=== PATIENT | female | born 1970 | race Caucasian/White ===

== ENCOUNTER 2024-02-06 09:00 | Inpatient (IN) | payer SELFPAY ==
[2024-02-06 09:09] VITALS: BMI 27.6
[2024-02-06] MEDS ORDERED: ACETAMINOPHEN INJECTION 100 ML IVPB ONE (10:22)
[2024-02-06 10:42] LABS: HEMATOCRIT 42.2 % (32.4-45.2); HEMOGLOBIN 14.3 GM/dL (10.7-15.3); MCH 31.2 pg (25.7-33.7); MEAN CELL VOLUME 91.8 fl (80-96); MEAN PLT VOLUME 9.2 fl (7.5-11.1); PLATELET COUNT 172 10^3/uL (134-434); WHITE BLOOD COUNT 18.6 K/mm3 (4.0-10.0)
[2024-02-06 10:55] LABS: POTASSIUM 4.1 mmol/L (3.5-5.1)
[2024-02-06 10:56] LABS: ALBUMIN 3.2 g/dl (3.4-5.0); CALCIUM 8.6 mg/dL (8.5-10.1)
[2024-02-06 10:59] LABS: CREATININE 0.5 mg/dL (0.55-1.3)
[2024-02-06] MEDS: SODIUM CHLORIDE 0.9% 500 ML INFUS.BAG IV ONE (12:17)
[2024-02-06] MEDS ORDERED: morphine SULFATE 4 MG/ML VIAL ONE (13:14)
[2024-02-06] MEDS ORDERED: CEFAZOLIN SODIUM 2 GM VIAL ONE (13:15)
[2024-02-06] MEDS ORDERED: LORATADINE 10 MG TABLET ONE (13:15)
[2024-02-06] MEDS: LORATADINE 10 MG TABLET PO ONE (13:23)
[2024-02-06] MEDS: morphine CARPU-JECT 4 MG/1 ML DISP.SYRIN IVPUSH ONE (13:23)
[2024-02-06] MEDS: CEFAZOLIN SODIUM 2 GM in DEXTROSE 5%-WATER 100 ML IVPB ONE (13:24)
[2024-02-06 13:43] LABS: ANISOCYTOSIS 0; HELMET CELLS 0; HOWELL-JOLLY BODIES 0; MACROCYTOSIS 0; OVALOCYTE 0; ROULEAU 0; SICKELED CELLS 0; TARGET CELLS 0; TEAR DROP CELLS 0; TOXIC GRANULATION 0
[2024-02-06] MEDS ORDERED: LISINOPRIL 10 MG TABLET ONE (15:40)
[2024-02-06] MEDS: LISINOPRIL 10 MG TABLET PO SCH (15:51)
[2024-02-06] MEDS ORDERED: ACETAMINOPHEN 325 MG TABLET (FP) ONE ×2 (17:06→22:31)
[2024-02-06] MEDS ORDERED: metFORMIN HCL 500 MG TABLET (FP) ONE (17:06)
[2024-02-06] MEDS ORDERED: oxyCODONE HCL 5 MG TABLET ONE (17:07)
[2024-02-06] MEDS: oxyCODONE HCL 5 MG TABLET PO PRN (17:10)
[2024-02-06] MEDS: ACETAMINOPHEN 325 MG TABLET (FP) PO PRN (17:10)
[2024-02-06] MEDS: metFORMIN HCL 500 MG TABLET (FP) PO SCH (17:10)
[2024-02-06] MEDS ORDERED: PIPERACILLIN/TAZOB 3.375 GM 3.375 GM/50 ML BAG IVPB ONE (17:52)
[2024-02-06] MEDS: PIPERACILLIN/TAZOB 3.375 GM 3.375 GM in DEXTROSE 5%-WATER - 50 ML IVPB SCH (17:58)
[2024-02-06] MEDS ORDERED: PIPERACILLIN/TAZOB 3.375 GM 3.375 GM in DEXTROSE 5%-WATER - 50 ML IVPB SCH (18:00)
[2024-02-06] MEDS: INSULIN ASPART SLIDING SCALE (NOVOLOG) 1 VIAL SQ SCH (18:20)
[2024-02-06] MEDS ORDERED: INSULIN (NOVOLOG) ASPART 100 UNITS/ML 10ML VIAL ONE ×2 (18:22→22:32)
[2024-02-06] MEDS ORDERED: VANCOMYCIN 1 GRAM (PRE-DOCKED) 1,000 MG/250 ML BAG IVPB ONE (18:23)
[2024-02-06] MEDS: VANCOMYCIN 1 GRAM (PRE-DOCKED) 1,000 MG/250 ML BAG IVPB ONE (18:30)
[2024-02-06] MEDS: VANCOMYCIN 1 GM PREMIX - 1 GM/200 ML BAG IVPB ONE (19:09)
[2024-02-06] MEDS ORDERED: HEPARIN NA (PORCINE) 5,000 UNITS/ML 1ML VIAL ONE (22:17)
[2024-02-06] MEDS: HEPARIN NA (PORCINE) 5,000 UNITS/ML 1ML VIAL SQ SCH (22:23)
[2024-02-07] MEDS: glipiZIDE 5 MG TABLET (FP) PO SCH (06:34)
[2024-02-07 08:36] LABS: EOS % 0.1 % (0-4.5); HEMATOCRIT 37.9 % (32.4-45.2); HEMOGLOBIN 12.9 GM/dL (10.7-15.3); LYMPH % 4.9 % (8-40); MCH 31.4 pg (25.7-33.7); MCHC 34.2 g/dl (32.0-36.0); MEAN CELL VOLUME 91.9 fl (80-96); MEAN PLT VOLUME 9.4 fl (7.5-11.1); MONO % 5.8 % (3.8-10.2); NEUT % 89.2 % (42.8-82.8); PLATELET COUNT 160 10^3/uL (134-434); RBC 4.12 M/mm3 (3.60-5.2); RDW 12.7 % (11.6-15.6); WHITE BLOOD COUNT 16.9 K/mm3 (4.0-10.0)
[2024-02-07 08:46] LABS: POTASSIUM 3.5 mmol/L (3.5-5.1)
[2024-02-07 09:06] LABS: ALBUMIN 2.6 g/dl (3.4-5.0); BLOOD UREA NITROGEN 16.3 mg/dL (7-18); CALCIUM 8.4 mg/dL (8.5-10.1)
[2024-02-07 09:10] LABS: CREATININE 0.5 mg/dL (0.55-1.3)
[2024-02-07 09:11] LABS: TOT PROT 5.9 g/dl (6.4-8.2)
[2024-02-07] MEDS: SODIUM CHLORIDE 1,000 ML IV SCH ×2 (13:16→15:06)
[2024-02-07] MEDS: VANCOMYCIN/WATER FOR INJ (PEG) 1,000 MG/200 ML BAG IVPB SCH (13:17)
[2024-02-07] MEDS: PIPERACILLIN/TAZOB 4.5 GM 4.5 GM in DEXTROSE 5%-WATER 100 ML IVPB SCH (13:30)
[2024-02-07] MEDS: VANCOMYCIN 1,000 MG in DEXTROSE 5%-WATER - 250 ML IVPB SCH (13:31)
[2024-02-07 17:02] LABS: HIV INTERPRETATION NEGATIVE (NEGATIVE)
[2024-02-07] MEDS: INSULIN (LEVEMIR) 100 UNITS/ML UNITS SQ SCH (22:03)
[2024-02-08 09:21] LABS: BASO % 0.1 % (0-2.0); EOS % 1.6 % (0-4.5); HEMATOCRIT 33.8 % (32.4-45.2); HEMOGLOBIN 11.8 GM/dL (10.7-15.3); LYMPH % 11.1 % (8-40); MCH 32.1 pg (25.7-33.7); MCHC 35.1 g/dl (32.0-36.0); MEAN CELL VOLUME 91.4 fl (80-96); MEAN PLT VOLUME 9.1 fl (7.5-11.1); MONO % 6.6 % (3.8-10.2); NEUT % 80.6 % (42.8-82.8); PLATELET COUNT 161 10^3/uL (134-434); RBC 3.69 M/mm3 (3.60-5.2); WHITE BLOOD COUNT 12.7 K/mm3 (4.0-10.0)
[2024-02-08 09:59] LABS: POTASSIUM 3.3 mmol/L (3.5-5.1)
[2024-02-08 10:07] LABS: CALCIUM 8.2 mg/dL (8.5-10.1)
[2024-02-08 10:08] LABS: ALBUMIN 2.3 g/dl (3.4-5.0); BLOOD UREA NITROGEN 10.4 mg/dL (7-18)
[2024-02-08 10:09] LABS: CREATININE 0.3 mg/dL (0.55-1.3)
[2024-02-08 10:12] LABS: BILIRUBIN,TOTAL 0.6 mg/dL (0.2-1); TOT PROT 5.6 g/dl (6.4-8.2)
[2024-02-08] MEDS: EMPAGLIFLOZIN (JARDIANCE) 10 MG TABLET PO SCH (12:23)
[2024-02-08] MEDS: POTASSIUM CHLORIDE ORAL LIQUID 20 MEQ/15 ML PO ONE (12:23)
[2024-02-08] MEDS: ACETAMINOPHEN 500 MG TABLET (FP) PO PRN (16:51)
[2024-02-08] MEDS: INSULIN (LEVEMIR) 100 UNITS/ML UNITS SQ SCH (22:10)
[2024-02-08] MEDS: ATORVASTATIN CA 40 MG TABLET (FP) PO SCH (22:11)
[2024-02-09 07:41] LABS: HEMATOCRIT 34.4 % (32.4-45.2); HEMOGLOBIN 11.7 GM/dL (10.7-15.3); MCH 31.3 pg (25.7-33.7); MEAN PLT VOLUME 8.5 fl (7.5-11.1); PLATELET COUNT 207 10^3/uL (134-434); RBC 3.74 M/mm3 (3.60-5.2); RDW 12.8 % (11.6-15.6); WHITE BLOOD COUNT 11.3 K/mm3 (4.0-10.0)
[2024-02-09 07:58] LABS: POTASSIUM 3.4 mmol/L (3.5-5.1)
[2024-02-09 08:00] LABS: CALCIUM 8.3 mg/dL (8.5-10.1)
[2024-02-09 08:01] LABS: BLOOD UREA NITROGEN 6.8 mg/dL (7-18)
[2024-02-09 08:04] LABS: CREATININE 0.3 mg/dL (0.55-1.3)
[2024-02-09] MEDS ORDERED: INSULIN ASPART SLIDING SCALE (NOVOLOG) 1 VIAL SQ ONE (09:39)
[2024-02-09] MEDS: LISINOPRIL 5 MG TABLET PO SCH (09:43)
[2024-02-09] MEDS: POTASSIUM CHLORIDE ORAL LIQUID 20 MEQ/15 ML PO ONE (12:08)
[2024-02-09] MEDS: CLINDAMYCIN 600MG PREMIX IVPB 600 MG/50 ML BAG IVPB SCH (16:20)
[2024-02-09] MEDS: INSULIN ASPART SLIDING SCALE (NOVOLOG) 1 VIAL SQ SCH (17:48)
[2024-02-09] MEDS: VANCOMYCIN/WATER 1250 MG 1,250 MG/250 ML BAG IVPB SCH (20:29)
[2024-02-10] MEDS: DEXTROSE 50%-WATER 25 GM/50 ML DISP.SYRIN IVPUSH ONE (06:08)
[2024-02-10 09:12] LABS: HEMATOCRIT 40.6 % (32.4-45.2); HEMOGLOBIN 14.3 GM/dL (10.7-15.3); MCH 32.2 pg (25.7-33.7); MCHC 35.2 g/dl (32.0-36.0); MEAN CELL VOLUME 91.5 fl (80-96); PLATELET COUNT 272 10^3/uL (134-434); RBC 4.44 M/mm3 (3.60-5.2); RDW 12.8 % (11.6-15.6); WHITE BLOOD COUNT 10.6 K/mm3 (4.0-10.0)
[2024-02-10 09:15] LABS: PROTHROMBIN TIME (PATIENT) 11.6 SEC (9.7-13.0)
[2024-02-10 09:24] LABS: POTASSIUM 3.8 mmol/L (3.5-5.1)
[2024-02-10 09:27] LABS: CALCIUM 8.5 mg/dL (8.5-10.1)
[2024-02-10 09:28] LABS: ALBUMIN 2.7 g/dl (3.4-5.0); BLOOD UREA NITROGEN 8.4 mg/dL (7-18)
[2024-02-10 09:31] LABS: CREATININE 0.4 mg/dL (0.55-1.3); PHOSPHOROUS 3.8 mg/dL (2.5-4.9)
[2024-02-10 09:32] LABS: BILIRUBIN,TOTAL 0.6 mg/dL (0.2-1)
[2024-02-10 09:33] LABS: ANISOCYTOSIS 1+; MACROCYTOSIS 0
[2024-02-10 15:36] VITALS: RESP 18
[2024-02-11 10:44] LABS: HEMATOCRIT 40.8 % (32.4-45.2); HEMOGLOBIN 14.2 GM/dL (10.7-15.3); MCH 31.7 pg (25.7-33.7); MCHC 34.8 g/dl (32.0-36.0); MEAN PLT VOLUME 7.9 fl (7.5-11.1); PLATELET COUNT 304 10^3/uL (134-434); RBC 4.49 M/mm3 (3.60-5.2); WHITE BLOOD COUNT 10.2 K/mm3 (4.0-10.0)
[2024-02-11] MEDS: VANCOMYCIN PREMIX 1.5 GM 1,500 MG/300 ML BAG IVPB SCH (21:48)
[2024-02-12 09:45] LABS: HEMATOCRIT 41.2 % (32.4-45.2); HEMOGLOBIN 14.2 GM/dL (10.7-15.3); MCH 31.8 pg (25.7-33.7); MCHC 34.5 g/dl (32.0-36.0); MEAN CELL VOLUME 92.1 fl (80-96); MEAN PLT VOLUME 7.9 fl (7.5-11.1); PLATELET COUNT 342 10^3/uL (134-434); RBC 4.48 M/mm3 (3.60-5.2); RDW 12.8 % (11.6-15.6); WHITE BLOOD COUNT 12.2 K/mm3 (4.0-10.0)
[2024-02-12 10:01] LABS: POTASSIUM 4.1 mmol/L (3.5-5.1)
[2024-02-12 10:16] LABS: BLOOD UREA NITROGEN 10.4 mg/dL (7-18); CALCIUM 8.7 mg/dL (8.5-10.1)
[2024-02-12 10:17] LABS: CREATININE 0.3 mg/dL (0.55-1.3)
[2024-02-14 08:48] LABS: HEMATOCRIT 41.6 % (32.4-45.2); HEMOGLOBIN 14.2 GM/dL (10.7-15.3); MCH 31.3 pg (25.7-33.7); MCHC 34.3 g/dl (32.0-36.0); MEAN CELL VOLUME 91.2 fl (80-96); MEAN PLT VOLUME 7.2 fl (7.5-11.1); PLATELET COUNT 407 10^3/uL (134-434); RBC 4.56 M/mm3 (3.60-5.2); RDW 12.9 % (11.6-15.6); WHITE BLOOD COUNT 9.5 K/mm3 (4.0-10.0)
[2024-02-14 08:52] LABS: INR 1.01 (0.83-1.09); PROTHROMBIN TIME (PATIENT) 11.7 SEC (9.7-13.0)
[2024-02-14 08:55] LABS: ACTIVATED PTT 32.6 SECONDS (25.2-36.5)
[2024-02-14 09:03] LABS: POTASSIUM 4.3 mmol/L (3.5-5.1)
[2024-02-14 09:14] LABS: ALBUMIN 2.5 g/dl (3.4-5.0); BLOOD UREA NITROGEN 12.8 mg/dL (7-18)
[2024-02-14 09:16] LABS: MAGNESIUM 2.2 mg/dL (1.8-2.4)
[2024-02-14 09:17] LABS: CREATININE 0.3 mg/dL (0.55-1.3); PHOSPHOROUS 3.7 mg/dL (2.5-4.9)
[2024-02-14 09:19] LABS: BILIRUBIN,TOTAL 0.7 mg/dL (0.2-1); TOT PROT 7.1 g/dl (6.4-8.2)
[2024-02-14 10:11] LABS: ANISOCYTOSIS 0; MACROCYTOSIS 0
[2024-02-14 14:38] VITALS: BP 116/63; PULSE 73; TEMP 97.7
== END 2024-02-14 17:46 | disposition home or self-care (01) | DRG 720 ==
LOC: JER 09:00 → JERBED 13:20 → J5S 23:11
PROVIDERS: ADMIT Internal Medicine
DX: A41.9 Sepsis, unspecified organism (principal); E11.65 Type 2 diabetes mellitus with hyperglycemia; L02.91 Cutaneous abscess, unspecified; E78.5 Hyperlipidemia, unspecified; N76.2 Acute vulvitis; R50.9 Fever, unspecified; L03.90 Cellulitis, unspecified
CPT/HCPCS: 36415; 71045-TC-FY; 72193-TC; 76830-TC; 80048; 80053; 80061; 82962; 83036; 83735; 84100; 84703; 85025; 85027; 85610; 85730; 86704; 86850; 86900; 86901; 87040; 87340; 87389; 87517; 99285-25; G0480; J1644; Q9967